=== PATIENT | female | born 2000 ===

== ENCOUNTER 2021-09-10 14:38 | Emergency (ER) | payer MEDICAID ==
[2021-09-10] MEDS ORDERED: methylPREDNISolone Sodium Succinate 125 MG/2 ML SDV IM ONE (15:03)
== END 2021-09-10 15:40 | disposition home or self-care (01) ==
LOC: DL.ED 14:38
DX: M54.42 Lumbago with sciatica, left side (principal); M54.41 Lumbago with sciatica, right side; E66.9 Obesity, unspecified; Z68.43 Body mass index [BMI] 50.0-59.9, adult; Z72.0 Tobacco use
CPT/HCPCS: 96372; 99284; J2930